=== PATIENT | female | born 1970 | race Caucasian/White ===

== ENCOUNTER → 2017-08-10 | Outpatient (CLI) | payer BC ==
--- NOTE | 2017-08-10 15:15 | RADRPT ---
PROCEDURE: I- 131 therapy CLINICAL INDICATION: 47 -year-old patient with hyperthyroidism, for I - 131 ablation. TECHNIQUE: On August 10, 2017, 15.4 mCi of I - 131 were administered orally to the patient. COMPARISON: No prior treatments. FINDINGS: The patient was advised about the nature of the treatment, alternatives, benefits, risks, side effec ts in radiation safety precautions. Written informed consent was obtained. No immediate complications were observed. IMPRESSION: 15.4 mCi of oral I - 131 therapy. RPTAT: HH .Martina Olivas MD, MD Date Time Electronically viewed and signed by .Martina Olivas MD, on 08/10/2017 15:15 .L/
== END | disposition home or self-care (01) ==
LOC: NUC 13:27
PROVIDERS: ATTEND Specialist
DX: E05.00 Thyrotoxicosis with diffuse goiter without thyrotoxic crisis or storm (principal)
CPT/HCPCS: 79005; A9517